=== PATIENT | male | born 1965 | race African-American/Black ===

== ENCOUNTER 2021-11-10 11:24 | Outpatient (REF) | payer MEDICAID, OTHER, SELFPAY ==
--- NOTE | ~2021-11-10 | XR_ITS ---
EXAMINATION: XR SHOULDER, LEFT CLINICAL INFORMATION: Pain COMPARISON: None TECHNIQUE: AP external rotation, Grashey, scapular Y, and axillary views of the left shoulder. FINDINGS: Bone alignment is normal. No fracture or dislocation is seen. The glenohumeral joint is normal. There is mild arthritis at the acromioclavicular joint. There is a small sclerotic lesion in the left scapula probably representing a bone island. Soft tissues are unremarkable. XR/XR shoulder LT min 2V IMPRESSION: Mild arthritis at the acromioclavicular joint. Small sclerotic lesion in the scapula probably representing a bone island.
== END 2021-11-10 11:25 | disposition home or self-care (01) ==
LOC: HO.XRAY 11:24
PROVIDERS: PCP Nurse Practitioner; Visit Provider Nurse Practitioner
DX: M25.512 Pain in left shoulder (principal)
CPT/HCPCS: 73030

== ENCOUNTER 2023-03-17 08:36 | Emergency (ER) | payer MEDICAID, OTHER, SELFPAY ==
--- NOTE | ~2023-03-17 | XR_ITS ---
EXAMINATION: XR FINGER, LEFT CLINICAL INFORMATION: Left second digit injury. COMPARISON: None available. TECHNIQUE: 3 views of the left hand second digit were obtained. An indicator arrow points to the distal interphalangeal joint of the second digit. FINDINGS: Mild soft tissue swelling and deformity seen in the second digit. No radiopaque foreign body is seen. A punctate density is seen at the radial base margin of the middle phalanx. The phalanges are otherwise intact. The joint spaces are unremarkable. The remainder the digits are intact. XR/XR finger LT min 2V IMPRESSION: 1. Mild soft tissue swelling and deformity in the second digit. No radiopaque foreign body. 2. Punctate density at the radial base margin of the middle phalanx is nonspecific and could be incidental/degenerative in nature. A tiny avulsion injury cannot be excluded. Correlate with physical exam.
[2023-03-17 08:46] VITALS: BP 160/101; PULSE 81; RESP 16; TEMP 36.6; O2SAT 98; BMI 23.0
--- NOTE | 2023-03-17 09:10 | ED.GENADULT ---
HPI - General Adult General Chief complaint: Wound/Laceration Stated complaint: Finger Lac Left Hand Time Seen by Provider: 03/17/23 09:07 Source: patient Mode of arrival: ambulatory Limitations: no limitations History of Present Illness HPI narrative: Patient is a 57 year old assigned male at with no reported medical history presenting to the emergency department today with a left index laceration. Patient states that he shut the trunk of a car on his left index finger. Patient denies any dizziness, lightheadedness, abdominal pain, nausea, vomiting, fever, chills, blurry vision, double vision, loss of vision, chest pain, difficulty breathing, shortness of breath, back pain, night sweats, pain with urination, increased urinary frequency, increased urinary urgency, blood in his urine or stool, syncope or a near syncopal episode, bowel incontinence, bladder incontinence, bowel retention, bladder retention, or any other complaints at this time. Onset (ago): hour(s) Location: left (index finger) Radiation: non-radiation Severity: mild Severity scale (1-10): 3 Quality: dull Pain Consistency: constant Relieving factors: none Exacerbating factors: none Associated symptoms: denies other symptoms Treatments prior to arrival: none Related Data Previous Rx's Medication Instructions Recorded cephalexin 500 mg capsule 500 mg PO Q6H 7 days #28 caps 03/17/23 Allergies Allergy/AdvReac Type Severity Reaction Status Date / Time No Known Allergies Allergy Verified 03/17/23 10:06 Review of Systems Constitutional: Constitutional: Reports no additional constitutional complaints, Denies chills, Denies fever(s) and Denies night sweats Eyes: Eyes: Reports no additional eye complaints, Denies blurry vision, Denies change in vision, Denies diplopia, Denies eye discharge, Denies loss of vision and Denies eye pain ENT: Denies dizziness Cardiovascular: Cardiovascular: Reports no additional cardiovascular complaints, Denies chest pain, Denies lightheadedness, Denies Loss of Consciousness and Denies dyspnea Respiratory: Respiratory: Reports no additional respiratory complaints and Denies dyspnea Gastrointestinal: Gastrointestinal: Reports no additional gastrointestinal complaints, Denies abdominal pain, Denies melena, Denies hematochezia, Denies change in bowel habits and Denies change in stool character Genitourinary: Genitourinary: Reports no additional male genitourinary complaints, Denies hematuria, Denies oliguria, Denies difficulty urinating, Denies dysuria, Denies urinary frequency, Denies urinary hesitancy, Denies urinary incontinence and Denies urinary urgency Musculoskeletal: Musculoskeletal: Reports no additional musculoskeletal complaints, Denies numbness and Denies tingling Integumentary/Breasts: Comments: left index finger laceration Neurologic: Denies dizziness, Denies loss of vision, Denies numbness and Denies tingling Psychiatric: Psychiatric: Reports no additional psychiatric complaints Endocrine: Endocrine: Reports no additional endocrine complaints Hematologic/Lymphatic: Hematologic/Lymphatic: Reports no additional hematologic/lymphatic complaints Allergic/Immunologic: Allergic/Immunologic: Reports no additional allergic/immunologic complaints PMFSH Past Medical History Attestation statement: The following information was validated with the patient. Source: old records reviewed and nursing notes reviewed Social History Social History Advance Directives: No Advance Directives Information Provided: No Physical Exam ED Vital Signs: Vital Signs - 24 hr 03/17/23 08:46 Temperature 97.8 F Pulse Rate 81 Respiratory Rate 16 Blood Pressure 160/101 H Pulse Oximetry 98 Oxygen Delivery Method Room Air BMI result Body Mass Index 23.0 Const General: cooperative, no acute distress, alert and awake Nutritional Appearance: well nourished Orientation/consciousness: patient oriented x3 Limitations: no limitations HENMT Head: Yes normal to inspection and Yes atraumatic Ears: hearing grossly normal bilaterally and external ears normal General nose exam: Normal external nose present, no nasal discharge noted and no epistaxis Face and sinus: Yes normal facial exam, No abrasion and No laceration Mouth: Normal oral and palatal mucosa present, no drooling and no muffled voice Eyes General: appearance normal, both eyes and all related structures Periorbital: periorbital findings normal Eyelids: Yes eyelids normal Conjunctivae: conjunctivae normal Pupils: Equal, round and reactive pupils present EOM: EOMs intact bilaterally Neck Neck: Yes normal visual inspection, Yes full ROM and Yes no lymphadenopathy Chest Chest palpation & inspection: normal inspection of the chest Resp Effort & Inspection: normal respiratory effort and able to speak in complete sentences GI Inspection: Yes normal to inspection Neuro General: patient oriented x3 and moves all extremities Cranial nerves: Yes Equal, round and reactive pupils present Cognition (Neuro): normal cognition Motor exam (neuro): 5/5 motor strength present throughout Sensory Exam: Normal double simultaneous stimulation for sensation Coordination: [id number] test normal Extrem Other: 2cm left index finger laceration on the palmar aspect just distal to the DIP joint, no active bleeding General: Yes full ROM and Yes capillary refill normal Psych Appearance: grossly normal Mental Status: mental status grossly normal Affect: normal affect Attitude: cooperative Thought process: Normal thought process present Thought content: Normal thought content present Insight: Good insight present (Psych) Medications Administered Discontinued Medications Generic Name Dose Route Start Last Admin Trade Name Wilbert PRN Reason Stop Dose Admin Lidocaine HCl 10 ml 03/17/23 10:06 03/17/23 10:26 Lidocaine Hcl 1 % Mpf 5 Ml Vial SUBCUT 03/17/23 10:07 10 ml ONCE ONE Administration Procedures Laceration Laceration 1: Site: other (index finger) Side (If applicable): left Size (cm): 2 Description: linear Depth: simple, single layer Local Anesthetic: lidocaine 1% Amount of anesthesia used (mL): 5 Pre-repair: wound explored, irrigated extensively and deep structures intact Skin layer closed with: nylon Size (cm): 4-0 Number of sutures: 6 Technique: simple, interrupted Orthopedic Splinting/Casting Injury #1: Side: left Upper Extremity Injury Location: finger Upper Extremity Immobilizer: finger (other) Medical Decision Making Medical Decision Making MDM Narrative: Patient is a 57 year old assigned male at with no reported medical history presenting to the emergency department today with a left index finger laceration. Patient's physical exam was as noted in the physical exam portion of this chart. Patient's hand x-ray showed a possible left index finger fx. I explained my physical exam findings as well as all test results to the patient. I answered all questions asked by the patient. Patient's left index finger was repaired, per procedure note, without incident. Patient's PMS was intact prior to and after laceration was repaired. Patient's left index finger was splinted with a foam finger splint, without incident. Patient's PMS was intact prior to and after splint placement. I stressed the importance of the patient taking his medication as prescribed. I stressed the importance of the patient following up with his primary care provider. I stressed the importance of the patient having his stitches removed in 7-10 days. I stressed the importance of the patient NOT soaking the affected area and performing daily wound checks / dressing changes. I stressed the importance of the patient returning to the emergency department immediately if his symptoms were to worsen or if he were to develop any dizziness, shortness of breath, difficulty breathing, chest pain, blurry vision, loss of vision, nausea, vomiting, abdominal pain, fever, chills, back pain, or any other complaints. Patient verbalized agreement and understanding with this treatment plan and discharge. Differential Diagnosis Differential Diagnoses: The differential diagnosis associated with the presentation includes Finger laceration Finger fx Independent Interpretation I performed an independent interpretation of an: Plain X-Ray Interpretation: My interpretation is in agreement with the radiologist's impression of this imaging study. EXAMINATION: XR FINGER, LEFT CLINICAL INFORMATION: Left second digit injury.? COMPARISON: None available.? TECHNIQUE: 3 views of the left hand second digit were obtained. An indicator arrow points to the distal interphalangeal joint of the second digit. FINDINGS: Mild soft tissue swelling and deformity seen in the second digit. No radiopaque foreign body is seen. A punctate density is seen at the radial base margin of the middle phalanx. The phalanges are otherwise intact. The joint spaces are unremarkable. The remainder the digits are intact.? XR/XR finger LT min 2V IMPRESSION: 1.? Mild soft tissue swelling and deformity in the second digit. No radiopaque foreign body. 2.? Punctate density at the radial base margin of the middle phalanx is nonspecific and could be incidental/degenerative in nature. A tiny avulsion injury cannot be excluded. Correlate with physical exam. Dictated By: Tom Maharaj MD Signed By: Electronically signed by Tom Maharaj MD 03/17/23 5881 Radiology Impression Discussion of test interpretation with radiology: I have reviewed the radiologist's reading. Prescription Management I considered prescription management with: Antibiotic (patient prescribed an antibiotic) Discharge Plan Discharge Clinical Impression: Laceration, Finger fracture Patient Disposition: Home, Self-Care Instructions: Care For Your Stitches (DC), Finger Fracture (ED) Additional Instructions: Have your sutures removed in 7-10 days. Do NOT soak the affected area. Take your antibiotics as prescribed. Perform daily dressing changes and wound checks. Follow up with your primary care provider and an orthopedic provider. Return to the emergency department immediately if your symptoms worsen or if you develop any dizziness, shortness of breath, difficulty breathing, chest pain, blurry vision, loss of vision, nausea, vomiting, abdominal pain, fever, chills, back pain, or any other complaints. Prescriptions: New cephalexin 500 mg capsule 500 mg PO Q6H 7 Days Qty: 28 0RF [place] [facility] [place] [facility] [Provider Group] (Call to establish and follow up with an orthopedic provider. ) Ania Angel [Primary Care Provider] - Interventions: ED Discharge Assessment Last Done: 03/17/23 11:18 Discharge Date/Time: 03/17/23 11:19 Print Language: Montenegrin
[2023-03-17] MEDS: Lidocaine HCl 1 % MPF 5 ML VIAL 10 ML SUBCUT (10:26)
== END 2023-03-17 11:19 | disposition home or self-care (01) ==
PROVIDERS: Emergency Provider Emergency Medicine Emergency Medical Services; PCP Nurse Practitioner
DX: S61.211A Laceration without foreign body of left index finger without damage to nail, initial encounter (principal); S62.601A Fracture of unspecified phalanx of left index finger, initial encounter for closed fracture; Y29.XXXA Contact with blunt object, undetermined intent, initial encounter; Y93.9 Activity, unspecified; Y92.9 Unspecified place or not applicable; Y99.9 Unspecified external cause status
CPT/HCPCS: 12001; 29130; 73140; 99282; 99284

== ENCOUNTER 2024-04-10 11:55 | Outpatient (REF) | payer MEDICAID, OTHER, SELFPAY ==
[2024-04-10 13:32] LABS: Hematocrit 42.5 % (42.0-52.0); Hemoglobin 14.1 g/dl (14.0-18.0); Mean Corpuscular HGB Conc 33.2 g/dl (31.0-36.0); Mean Corpuscular Hemoglobin 28.3 pg (27.0-33.0); Mean Corpuscular Volume 85.2 fL (80.0-98.0); Mean Platelet Volume 10.4 fL (9.4-12.4); Platelet Count 315 X10*3/uL (160-400); Red Blood Count 4.99 X10*6/uL (4.60-5.80); White Blood Count 10.3 X10*3/uL (4.8-10.8)
[2024-04-10 13:42] LABS: Estimated Average Glucose 105 mg/dL; Hemoglobin A1C 124.6538 umol/L; Hemoglobin A1c % 5.3 % (<6.0)
[2024-04-10 14:01] LABS: Alanine Aminotransferase 19 U/L (0-40); Albumin Level 4.1 g/dL (3.5-5.0); Alkaline Phosphatase 73 U/L (39-117); Anion Gap 10 (12-20); Aspartate Amino Transferase 21 U/L (5-37); Bilirubin Direct 0.1 mg/dL (0.0-0.5); Bilirubin Total 0.4 mg/dL (0.0-1.0); Blood Urea Nitrogen 18 mg/dL (9-16); Calcium 9.6 mg/dL (8.4-10.2); Carbon Dioxide 24 mmol/L (22-29); Chloride 106 mmol/L (96-108); Cholesterol 234 mg/dL (<200); Estimated Glomerular Filt Rate > 60; Glucose Random 87 mg/dL (60-115); HDL Cholesterol 54 mg/dL (>40); LDL Cholesterol Calculated 154 mg/dL (<100); Potassium 4.1 mmol/L (3.3-5.1); Sodium 136 mmol/L (135-145); Total Protein 7.2 g/dL (6.5-8.0); Triglycerides 134 mg/dL (<150)
[2024-04-10 14:06] LABS: Free T4 (Free Thyroxine) 0.97 ng/dL (0.71-1.85); Thyroid Stimulating Hormone 0.51 uIU/mL (0.32-4.0); Vitamin D 25-OH Total 41.4 ng/mL (>30)
[2024-04-11 08:17] LABS: HBc Num1 0.15 S/CO (0.00-0.79); HBsAGNum1 0.29 S/CO (0.00-0.99); HIV AB/AG Nonreactive (Nonreactive); HIV Num 1 0.06 S/CO (0.00-0.99); Hepatitis B Core Antibody Nonreactive (Nonreactive); Hepatitis B Surface Antigen Negative (Negative); ~HepC Num1 0.13 S/CO (0.00-0.79); ~Hepatitis B Surface Antibody NONREACTIVE (Nonreactive); ~Hepatitis C Antibody Nonreactive (Nonreactive)
[2024-04-11 08:21] LABS: Hepatitis A Antibody IgG REACTIVE (Nonreactive)
[2024-04-11 12:03] LABS: RPR Rapid Plasma Reagin NON-REACTIVE (NON-REACTIVE)
[2024-04-12 02:13] LABS: Rubeola IgG (Measles) >300.00 AU/mL
== END 2024-04-10 11:56 | disposition home or self-care (01) ==
LOC: HO.HHCL 11:55
PROVIDERS: Visit Provider Family Medicine
DX: Z00.00 Encounter for general adult medical examination without abnormal findings (principal); Z11.4 Encounter for screening for human immunodeficiency virus [HIV]; I10 Essential (primary) hypertension; E78.49 Other hyperlipidemia; F17.200 Nicotine dependence, unspecified, uncomplicated
CPT/HCPCS: 36415; 80048; 80061; 80076; 82306; 83036; 84439; 84443; 85027; 86592; 86704; 86706; 86708; 86735; 86762; 86765; 86787; 86803; 87340; 87389

== ENCOUNTER → 2024-05-07 13:56 | Outpatient (REF) | payer MEDICAID, OTHER, SELFPAY ==
--- NOTE | 2024-05-07 14:02 | CA_ITS ---
Transthoracic Echocardiogram Patient (Last, First, Middle): Nathalia Rojas, Gender: Male Date of : 1965 Age: 58 Procedure Date: 05/07/2024 Procedure Type: Transthoracic Echocardiogram Location: OP Height: 154.94 cm Weight: 50.8 kg BSA: 1.48 m2 Heart Rate: bpm BP: 128 / 90 mmHg Jet Aircraft Servicer: BETO Referring MD: Puja Giron DO Cane Burner: Junior Taveras MD Symptoms: CHEST PAIN Study Quality: Fair ECG Rhythm: Sinus Conclusions: - 1. Normal LV ejection fraction 60 65% with grade 1 diastolic dysfunction 2. Normal cardiac valvular Dopplers 3. No gross pericardial effusion Findings Procedure Information The study quality is limited by patients body habitus. Left Ventricle Normal left ventricular size, thickness, and systolic function. The visually estimated ejection fraction is between 60-65%. Spectral Doppler is indicative of an impaired relaxation filling pattern. E/E prime ratio is <8, consistent with normal filling pressures. Evidence suggests grade I (mild) diastolic dysfunction. Right Ventricle Normal right ventricular cavity size and systolic function. Atria Both atria are normal in size. Interatrial shunt cannot be excluded. Aortic Valve The aortic valve structure and function is likely normal. There is no aortic valve stenosis. There is no aortic valve regurgitation. Mitral Valve Likely normal mitral valve structure and function. There is trace mitral valve regurgitation. There is no mitral valve stenosis. Pulmonic Valve The pulmonic valve is likely normal. Tricuspid Valve Likely normal tricuspid valve structure and function. Tricuspid regurgitation envelope is inadequate for calculation of right ventricular systolic pressure. Great Vessels All visible segments of the aorta are normal in size. The pulmonary artery was not well visualized. Venous The inferior vena cava is normal in size and collapses greater than 50% with inspiration. Pericardium/Pleural There is no evidence of pericardial effusion. Prior Study Comparison No prior study available for comparison. Measurements 2D Linear Measurements IVSd: 1.11 0.6-0.9/0.6-1.0 cm LVIDd: 3.79 3.9-5.3/4.2-5.9 cm LVIDd Index: 2.56 2.4-3.2/2.2-3.1 cm/m2 LVIDs: 2.28 2.0-3.6 cm LVPWd: 0.89 0.7-1.1 cm LA Diam: 2.20 2.7-3.8/3.0-4.0 cm LAIDs Index: 1.49 1.5-2.3 cm/m2 LV Mass: 145.57 67-162/88-224 g LV Mass Index: 98.35 43-95/49-115 g/m2 LVOT Diam: 2.00 3.0+(-)1.3 cm 2D Systolic Function EF 4C: 59.00 >55% EF 2C: 61.70 >55% EF BiP: 61.80 >55% Mitral Valve MV Pk E: 0.57 MV PK A: 0.77 MV Decel Time: 137.00 E/A: 0.70 E'Lateral: 10.30 E'Medial: 7.72 E/E' Med: 7.40 E/E' Lat: 5.60 PHT: 40.00 MVA PHT: 5.50 Decel George: 4.18 Aortic Valve AoV Pk Eric: 1.57 AoV Mn Eric: 1.06 AoV VTI: 0.30 AoV Pk Grad: 10.00 Aov Mn Grad: 5.00 DARSHAN Cont.VTI: 2.12 LVOT LVOT Pk Eric: 1.02 LVOT Mn Eric: 0.54 LVOT VTI: 0.20 LVOT Pk Grad: 4.00 LVOT Mn Grad: 2.00 LVOT Diam: 2.00 LVOT Area: 3.14 Diastolic Function MV Pk E: 0.57 MV Pk A: 0.77 E/A: 0.70 E'Medial: 7.72 E/E' Med: 7.40 E' Laterial: 10.30 E/E' Lat: 5.60 Right Ventricle TAPSE (mm): 19.90 TVS' Eric: 11.10 Tricuspid Valve RA Press: 3.00 Great Vessels Aorta Sinus of Valsalva: 3.04 2.0-3.[address] Ridge: 2.12 1.7-3.4 cm Ao Asc: 3.00 2.1-3.4 cm Updated in Other Vendor System with Status of Final Junior Taveras MD electronically signed on 05/07/2024 3:27:13 PM with status of Final
== END ==
LOC: HO.CARD 13:56
PROVIDERS: PCP Nurse Practitioner; Visit Provider Family Medicine
DX: R07.9 Chest pain, unspecified (principal)
CPT/HCPCS: 93306

== ENCOUNTER → 2024-05-07 14:02 | Outpatient (BNV) | payer SELFPAY | PROVIDERS: PCP Nurse Practitioner; Visit Provider Internal Medicine Cardiovascular Disease | DX: I51.89 Other ill-defined heart diseases (principal) | CPT/HCPCS: 93306 ==

== ENCOUNTER 2024-09-17 10:23 | Outpatient (REF) | payer SELFPAY ==
--- NOTE | ~2024-09-17 | XR_ITS ---
EXAMINATION: XR CERVICAL SPINE CLINICAL INFORMATION: PAIN COMPARISON: None available. TECHNIQUE: 3 views of the cervical spine were obtained. FINDINGS: Craniocervical junction is intact. Multilevel marginal osteophyte formation, endplate sclerosis, decreased intervertebral disc C5-6, C6-7 and to a lesser extent C3-4. Grade 1 retrolisthesis C5-6 and C6-7. Grade 1 anterolisthesis C4-5. No acute cortical disruption. No lytic or blastic lesions. Upper respiratory airways patent. XR/XR cervical spine 3V IMPRESSION: Multilevel cervical spondylosis resulting in grade 1 retrolisthesis C5-6 and C6-7 levels and grade 1 anterolisthesis C4-5. Electronically signed by: Lenny Reilly MD 09/17/2024 11:22 AM YEHUDA
--- NOTE | ~2024-09-17 | XR_ITS ---
EXAMINATION: XR SHOULDER, RIGHT CLINICAL INFORMATION: PAIN COMPARISON: None available. TECHNIQUE: AP external rotation, Grashey, scapular Y, and axillary views of the right shoulder. FINDINGS: No acute cortical disruption or malalignment. No lytic or blastic lesions. There is preservation of the joint spaces. No metallic or radiopaque foreign body. XR/XR shoulder RT min 2V IMPRESSION: No acute fracture or dislocation. No gross osteoarthrosis. Electronically signed by: Lenny Reilly MD 09/17/2024 11:22 AM YEHUDA MARIN
--- OUTSIDE RECORDS SUMMARY | 2024-09-17 11:18 | XMS_ITS | Encounter Summary ---
Author Organization [employer] Address [address] [place] [address] Care Team Providers Care Lead Pressman [employer] Name Role Phone Bree Puja Primary Care Provider + [phone] Reason for Visit * Reason Comments Chest Pain Encounter Details Date Type Department Care Team (Latest Contact Info) Description 08/23/2024 10:20 AM EST Office Visit [facility] [address] [place] [address] Jacky Rodriguez MD [address] [place] [address] Costochondritis (Primary Dx); Essential hypertension Social History Tobacco Use Types Packs/Day Years Used Date Smoking Tobacco: Every Day Cigarettes Alcohol Use Standard Drinks/Week Comments Yes 0 (1 standard drink = 0.6 oz pur e alcohol) Housing Stability Answer Date Recorded What is your housing situation today? I have lizbet vern 04/10/[address] you li ve. Do you have problems with any of the following? None of the above 04/10/2024 Food Insecurity Answer Date Recorded Within the past 12 months, y ou worried that your food would run out before you got money to buy more: Never True 04/10/2024 Within the past 12 months,th e food you bought just didn't last and you didn't have enough money to get more: Never True Transportation Answer Date Recorded In the past 12 months, has l ack of transportation kept you from medical appts, meetings, work or from getting things needed for daily living? No 04/10/2024 Utilities Answer Date Recorded In the past 12 months, has t he electric, gas, oil or water company threatened to shut off services in your home? No 04/10/2024 Internet Access Answer Date Recorded Internet Access Q1 Yes 04/22/2024 Internet Access Q2 Not on file 04/22/2024 Sex and Gender Information Value Date Recorded Sex Assigned at Male 06/20/2022 10:36 AM EDT Legal Sex Male 10:36 AM EDT Gender Identity Male 06/20/2022 10:36 AM EDT Sexual Orientation Straight 06/20/2022 10 :36 AM EDT documented as of this encounter Last Filed Vital Signs Vital Sign Reading Time Taken Comments Blood Pressure 146/88 08/23/2024 10:10 AM EST Pulse 90 08/23/2024 10:10 AM EST Temperature 36.3 ??C (97.3 ??F) 08/23/2024 10:[address] Respiratory Rate 17 08/23/2024 10:10 AM EST Oxygen Saturation 99% 08/23/2024 10:10 AM EST Inhaled Oxygen Concentration - - Weight 50.3 kg (111 lb) 08/23/2024 10:10 AM EST Height - - Body Mass Index 20.97 08/19/2024 9:04 AM EST documented in this encounter Progress Notes * Jacky Thornton MD - 08/23/2024 10:20 AM EST Images from the original note were not included. SUBJECTIVE: Nathalia Rojas is a 59 y.o. year old male who presents for chest wall pain . Acute Concerns: Patient reports for he past week he has being having pain on his right side of the chest radiating to his right arm, patient comes with and they report he was doing some chores at home lifting heavy objects, he denies nausea, sweating, weakness, palpitations, pain is reproducible. Off note patient has being c/o chest pain before and he already had an echocardiogram done and has a cariology appointment on 09/17/23 Social History Social History Narrative Not on file Patient Active Problem List Diagnosis Tobacco dependence Essential hypertension Chronic left shoulder pain BMI 21.0-21.9, adult Costochondritis Family History Problem Relation Name Age of Onset Stroke Mother Stroke Brother Review of Systems Constitutional: Negative. HENT: Negative. Respiratory: Negative. Cardiovascular: Positive for chest pain. Negative for palpitations and leg swelling. Gastrointestinal: Negative. Musculoskeletal: Chest wall pain, right arm pain OBJECTIVE: Vitals: 08/23/24 1010 BP: (!) 146/88 BP Location: Right arm Patient Position: Sitting BP Cuff Size: Adult Pulse: 90 Resp: 17 Temp: 97.3 ??F (36.3 ??C) TempSrc: Temporal SpO2: 99% Weight: 111 lb (50.3 kg) Physical Exam Constitutional: Appearance: Normal appearance. Cardiovascular: Rate and Rhythm: Normal rate and regular rhythm. Pulmonary: Effort: Pulmonary effort is normal. Breath sounds: Normal breath sounds. Chest: Comments: Tenderness Abdominal: General: Abdomen is flat. Palpations: Abdomen is soft. Neurological: Mental Status: He is alert. Follow Up: No follow-ups on file. Current Outpatient Medications on File Prior to Visit Medication Sig Dispense Refill albuterol 108 (90 Base) MCG/ACT inhaler Inhale 2 puffs every 4 (four) hours if needed for wheezing or shortness of breath. 18 g 1 amLODIPine (Norvasc) 5 MG tablet Take 1 tablet (5 mg) by mouth Once per day. 90 tablet 3 atorvastatin (Lipitor) 10 MG tablet Take 1 tablet (10 mg) by mouth Once per day. 90 tablet 3 Blood Pressure kit cetirizine (ZyrTEC) 10 MG tablet Take 1 tablet (10 mg) by mouth Once per day. 30 tablet 11 meloxicam (Mobic) 15 MG tablet Take 1 tablet (15 mg) by mouth Once per day. 30 tablet 11 triamcinolone (Kenalog) 0.1 % cream Apply topically if needed in the morning and at bedtime (pain and swelling). 80 g 2 [DISCONTINUED] clindamycin (Cleocin) 300 MG capsule Take 1 capsule by mouth every 8 (eight) hours. [DISCONTINUED] naproxen (Naprosyn) 500 MG tablet Take 1 tablet by mouth if needed in the morning and at bedtime for pain. No current facility-administered medications on file prior to visit. Problem List Items Addressed This Visit Costochondritis - Primary Apply heat on affected area Acetaminophen 1000mg Q 8hrs Cyclobenzaprine 10mg Q 8hrs (patient was intake counselor about side effect somnolence, do not drive while taking this medication) If chest pain persists I advise for him to go to the emergency room Relevant Medications cyclobenzaprine (Flexeril) 10 MG tablet acetaminophen (Tylenol Extra Strength) 500 MG tablet Other Relevant Orders ECG 12 lead (Completed) Essential hypertension Today slightly elevated, he did not took his blood pressure medications I advise not to miss any dose and low Na diet, f/u with PCP documented in this encounter Miscellaneous Notes * Assessment & Plan Note - Jacky Thornton MD - 08/23/2024 10:57 AM EST Associated Problem(s): Costochondritis Apply heat on affected area Acetaminophen 1000mg Q 8hrs Cyclobenzaprine 10mg Q 8hrs (patient was intake counselor about side effect somnolence, do not drive while taking this medication) If chest pain persists I advise for him to go to the emergency room * Assessment & Plan Note - Jacky Thornton MD - 08/23/2024 10:56 AM EST Associated Problem(s): Essential hypertension Today slightly elevated, he did not took his blood pressure medications I advise not to miss any dose and low Na diet, f/u with PCP * Addendum Note - Jacky Thornton MD - 08/23/2024 10:20 AM ESTAddended by: JACKY KNOTT on: 08/23/2024 11:08 AM Modules accepted: Orders documented in this encounter Plan of Treatment Not on file documented as of this encounter Procedures Procedure Name Priority Date/Time Associated Diagnosis Comments ECG 12-LEAD Routine 08/23/2024 11:08 AM EST Costochondritis documented in this encounter Results * ECG 12 lead (08/23/2024 11:08 AM EST) Narrative Jacky Rodriguez MD - 08/23/2024 11:08 AM EST NSR us Jacky Thornton MD ECG ORDERABLES Final Result documented in this encounter Visit Diagnoses Diagnosis Costochondritis- Primary Tietze's disease Essential hypertension Unspecified essential hypertension documented in this encounter Care Teams Lead Pressman [employer] Relationship Specialty Start Date End Date Puja Giron DO [address] [place] [address] PCP - General Family Medicine 03/08/24 documented as of this encounter
--- OUTSIDE RECORDS SUMMARY | 2024-09-17 11:18 | XMS_ITS | Encounter Summary ---
Author Organization [employer] Address [address] [facility] 7t [place] [address] Care Team Providers Care Ice Cream Chef Name Role Phone Puja Giron DO Primary Care Provider + [phone] Reason for Visit * Reason Comments Med Refill Encounter Details Date Type Department Care Team ([facility] Contact Info) Description 08/30/2024 Refill [facility] [address] [place], [place] [phone] Puja Giron DO [address] [place], [place] [phone] Social History Tobacco Use Types Packs/Day Years Used Date Smoking Tobacco: Every Day Cigarettes Alcohol Use Standard Drinks/Week Comments Yes 0 (1 standard drink = 0.6 oz pur e alcohol) Housing Stability Answer Date Recorded What is your housing situation today? I have lizbet porras 04/10/[address] you li [...] AM EDT documented as of this encounter Plan of Treatment Not on file documented as of this encounter Visit Diagnoses Not on filedocumented in this encounter Care Teams Ice Cream Chef Relationship Specialty Start Date End Date Puja Giron DO [address] [place] [phone] PCP - General Family Medicine 03/08/24 documented as of this encounter
--- OUTSIDE RECORDS SUMMARY | 2024-09-17 11:18 | XMS_ITS | Encounter Summary ---
Author Organization [employer] Address 75 [facility] 7t [place] [address] Care Team Providers Care Lining Feller Blindstitch Name Role Phone Puja Giron DO Primary Care Provider + [phone] Encounter Details Date Type Department Care Team ([facility] st Contact Info) Description 09/17/2024 9:00 AM EST Office Visit [facility] [address] [place] [address] Puja Giron DO [address] [place] [address] Right-sided chest pain (Primary Dx); Chronic right shoulder pain; Right arm pain; Dermatitis; Encounter for immunization Social History Tobacco Use Types Packs/Day Years Used Date Smoking Tobacco: Every Day Cigarettes Tobacco Cessation:Ready to Q uit: Not Asked; Counseling Given: Not Answered Alcohol Use Standard Drinks/Week Comments Yes 0 [...] Sign Reading Time Taken Comments Blood Pressure 132/70 09/17/2024 9:26 AM EST Pulse 86 09/17/2024 9:26 AM EST Temperature 36.8 ??C (98.3 ??F) 09/17/2024 9:26 AM ES T Respiratory Rate 18 09/17/2024 9:26 AM EST Oxygen Saturation - - Inhaled Oxygen Concentration - - Weight 50.8 kg (112 lb) 09/17/2024 9:26 AM EST Height 160 cm (5' 3 ) 09/17/2024 9:26 AM EST Body Mass Index 19.84 09/17/2024 9:26 AM EST documented in this encounter Plan of Treatment Scheduled Orders Name Type Priority Associated Diagnoses Orde r Schedule XR Shoulder 2+ Views Right Imaging Routine Chronic right shoulder pain Right arm pain Expected: 09/17/2024, Expires: 09/17/2025 XR Cervical Spine 2-3 Views Imaging Routine Chronic right shoulder pain Right arm pain Expected: 09/17/2024, Expires: 09/17/2025 documented as of this encounter Visit Diagnoses Diagnosis Right-sided chest pain- Primary Chronic right shoulder pain Pain in joint, shoulder region Right arm pain Pain in soft tissues of limb Dermatitis Contact dermatitis and other eczema, due to unspecified cause Encounter for immunization documented in this encounter Care Teams Lining Feller Blindstitch Relationship Specialty Start Date End Date Puja Giron DO [address] [place] [address] PCP - General Family Medicine 03/08/24 documented as of this encounter
--- OUTSIDE RECORDS SUMMARY | 2024-09-17 11:18 | XMS_ITS | Encounter Summary ---
Author Organization [employer] Address [address] [facility] 7t [place] [address] Care Team Providers Care Welder Shielded Metal Arc Name Role Phone Puja Grion DO Primary Care Provider + [phone] Reason for Visit * Reason Comments Chest Pain Encounter Details Date Type Department Care Team ([facility] st Contact Info) Description 08/19/2024 9:20 AM EST Office Visit [facility] [address] [place] [address] Ruth Antonio MD [address] [place] [address] Essential hypertension (Primary Dx); Costochondritis; History of nummular eczema Social History Tobacco Use Types Packs/Day Years [...] Sign Reading Time Taken Comments Blood Pressure 141/82 08/19/2024 9:04 AM EST Pulse 67 08/19/2024 9:04 AM EST Temperature 36.6 ??C (97.8 ??F) 08/19/2024 9:04 AM ES T Respiratory Rate 20 08/19/2024 9:04 AM EST Oxygen Saturation - - Inhaled Oxygen Concentration - - Weight 51 kg (112 lb 6.4 oz) 08/19/2024 9:04 AM EST Height 154.9 cm (5' 1 ) 08/19/2024 9:04 AM EST Body Mass Index 21.24 08/19/2024 9:04 AM EST documented in this encounter Progress Notes * Ruth Antonio MD - 08/19/2024 9:20 AM EST Subjective Patient ID: Nathalia Rojas is a 59 y.o. male who presents for No chief complaint on file.. HPI One week h/o right upper chest pain radiating to the right shoulder and the right arm associated w/tingling x the last week or so. No reported trigger. Pt never had similar symptoms before. The pain is exacerbated by movements of the right shoulder. H/o pruritic skin rash of the upper and lower limbs x 1 months. No trigger. No h/o contact dermatitis. Patient Active Problem List Diagnosis Tobacco dependence Essential hypertension Chronic left shoulder pain BMI 21.0-21.9, adult Current Outpatient Medications on File Prior to [...] day. 90 tablet 3 Blood Pressure kit [DISCONTINUED] clindamycin (Cleocin) 300 MG capsule Take 1 capsule by mouth every 8 (eight) hours. [DISCONTINUED] naproxen (Naprosyn) 500 MG tablet Take 1 tablet by mouth if needed in the morning and at bedtime for pain. No current facility-administered medications on file prior to visit. Review of Systems Constitutional: Negative for appetite change, chills and diaphoresis. Respiratory: Negative for cough, choking and shortness of breath. Cardiovascular: Negative for leg swelling. Musculoskeletal: Positive for myalgias. Skin: Positive for rash. Objective BP (!) 141/82 (BP Location: Left arm, Patient Position: Sitting, BP Cuff Size: Adult) Pulse 67 Temp 97.8 ??F (36.6 ??C) (Temporal) Resp 20 Ht 5' 1 (1.549 m) Wt 112 lb 6.4 oz (51 kg) BMI 21.24 kg/m?? Physical Exam Constitutional: General: He is not in acute distress. Appearance: Normal appearance. He is not ill-appearing. Cardiovascular: Rate and Rhythm: Normal rate. Pulmonary: Effort: Pulmonary effort is normal. Abdominal: Palpations: Abdomen is soft. Skin: Comments: Erythematous and dry oval and dry patches or varied sizes of the upper and lower limbs. Neurological: Mental Status: He is alert. Assessment/Plan Diagnoses and all orders for this visit: Essential hypertension Comments: Did not take his BP medication yet today Pt advised to check his BP at home at arrival and to report to the office DASH diet Orders: - ECG 12 lead Costochondritis Comments: Moist heat to the area Rest. Avoid lifting. Meloxicam as directed RTC for follow up w/ PCP in a month or so. Orders: - ECG 12 lead - meloxicam (Mobic) 15 MG tablet; Take 1 tablet (15 mg) by mouth Once per day. History of nummular eczema - cetirizine (ZyrTEC) 10 MG tablet; Take 1 tablet (10 mg) by mouth Once per day. - triamcinolone (Kenalog) 0.1 % cream; Apply topically if needed in the morning and at bedtime (pain and swelling). Follow up w/ PCP as scheduled in 1 month. documented in this encounter Plan of Treatment Not on file documented as of this encounter Procedures Procedure Name Priority Date/Time Associated Diagnosis Comments ECG 12-LEAD Routine 08/19/2024 9:48 AM EST Essential hypertension Costochondritis documented in this encounter Results * ECG 12 lead (08/19/2024 9:48 AM EST) Narrative Ruth Antonio MD - 08/19/2024 9:48 AM EST HR: 80. Sinus rhythm. [place]: 80 degrees. No LAE, TOMA. No hypertrophy. No ST elevation or depression. Normal EKG. us Ruth Antonio MD ECG ORDERABLES Final Resul t documented in this encounter Visit Diagnoses Diagnosis Essential hypertension- Primary Unspecified essential hypertension Costochondritis Tietze's disease History of nummular eczema documented in this encounter Care Teams Welder Shielded Metal Arc Relationship Specialty Start Date End Date Puja Giron DO [address] [place] [address] PCP - General Family Medicine 03/08/24 documented as of this encounter
--- OUTSIDE RECORDS SUMMARY | 2024-09-17 11:19 | XMS_ITS | Clinical Summary ---
Author Organization [employer] Address 75 [facility] 7t [place] [address] Care Team Providers Care Casting House Worker Name Role Phone Puja Giron DO Primary Care Provider + [phone] Allergies Active Allergy Reactions Criticality Noted Date Comments Ampicillin 11/06/2019 Medications Blood Pressure kit Active atorvastatin (Lipitor) 10 MG tablet Take 1 tablet (10 mg) by mouth Once per day. 90 tablet 3 04/10/20 24 025 Active amLODIPine (Norvasc) 5 MG tablet Take 1 tablet (5 mg) by mouth Once per day. 90 tablet 3 04/10/20 24 025 Active cetirizine (ZyrTEC) 10 MG tabletIndicati ons:History of nummular eczema Take 1 tablet (10 mg) by mouth Once per day. 30 tablet 11 08/19/20 24 025 Active triamcinolone (Kenalog) 0.1 % creamIndicatio ns:History of nummular eczema Apply topically if needed in the morning and at bedtime (pain and swelling). 80 g 2 08/19/20 24 Active meloxicam (Mobic) 15 MG tabletIndicati ons:Costochond ritis Take 1 tablet (15 mg) by mouth Once per day. 30 tablet 11 08/19/20 24 025 Active cyclobenzaprin e (Flexeril) 10 MG tabletIndicati ons:Costochond ritis Take 1 tablet (10 mg) by mouth 3 times daily for 10 days. 30 tablet 08/23/19 25 Active Ventolin HFA 108 (90 Base) MCG/ACT inhaler INHALE 2 PUFFS EVERY 4 HOURS NEEDED FOR WHEEZING OR SHORTNESS OF BREATH 18 g 1 08/30/19 25 Active clindamycin (Cleocin) 300 MG capsule Take 1 capsule by mouth every 8 (eight) hours. 01/21/20 22 024 Discontinued(Th erapy completed) naproxen (Naprosyn) 500 MG tablet Take 1 tablet by mouth if needed in the morning and at bedtime for pain. 03/08/20 22 024 Discontinued(Th erapy completed) albuterol 108 (90 Base) MCG/ACT inhaler Inhale 2 puffs every 4 (four) hours if needed for wheezing or shortness of breath. 18 g 1 04/10/20 24 025 Discontinued acetaminophen (Tylenol Extra Strength) 500 MG tabletIndicati ons:Costochond ritis Take 2 tablets (1,000 mg) by mouth every 8 (eight) hours if needed for mild pain for up to 10 days. 30 tablet 08/23/19 25 025 Active Problems Problem Noted Date Diagnosed Date Costochondritis 08/23/2024 Assessment & Plan (08/23/2024 10:57 AM EST): Apply heat on affected area Acetaminophen 1000mg Q 8hrs Cyclobenzaprine 10mg Q 8hrs (patient was enrollment counselor about side effect somnolence, do not drive while taking this medication) If chest pain persists I advise for him to go to the emergency room BMI 21.0-21.9, adult 04/10/2024 Tobacco dependence 07/26/2022 Essential hypertension 07/26/2022 Assessment & Plan (08/23/2024 10:56 AM EST): Today slightly elevated, he did not took his blood pressure medications I advise not to miss any dose and low Na diet, f/u with PCP Chronic left shoulder pain 09/28/2021 Resolved Problems Problem Noted Date Diagnosed Date Resolved Date Cardiovascular event risk 07/26/2022 Encounters Date Type Department Care Team Description 09/17/2024 9:00 AM EST Office Visit [address] [address] [place], Puja, DO Right-sided chest pain (Primary Dx); Chronic right shoulder pain; Right arm pain; Dermatitis; Encounter for immunization 09/17/2024 Telephone [facility] [address] [place] [phone] Puja Giron DO 09/17/2024 Travel 08/30/2024 Refill [facility] [address] [place] [phone] Puja Giron DO 08/23/2024 10:20 AM EST Office Visit [facility] [address] [place] [phone] Nkechi Rodriguez MD Costochondritis (Primary Dx); Essential hypertension 08/19/2024 9:20 AM EST Office Visit [facility] [address] [place] [phone] Ruth Antonio MD Essential hypertension (Primary Dx); Costochondritis; History of nummular eczema 08/08/2024 Telephone [facility] [address] [place] [phone] Puja Giron DO Lab Orders 08/08/[address] [address] Puja Giron DO Nurse Triage from Last 3 Months Immunizations Name Administration Dates Next Due Influenza, seasonal, injecta ble, preservative free 09/17/2024 Pfizer Covid-19 Vaccine 12+ 09/17/2024,,09/15/2021 Tdap 11/10/2021 Family History Medical History Relation Name Comments Stroke Brother Stroke Mother Relation Name Status Comments Brother Mother Social History Tobacco Use Types Packs/Day Years [...] Orientation Straight 06/20/2022 10 :36 AM EDT Last Filed Vital Signs Vital Sign Reading Time Taken Comments Blood Pressure 132/70 09/17/2024 9:26 AM EST Pulse 86 09/17/2024 9:26 AM EST Temperature 36.8 ??C (98.3 ??F) 09/17/2024 9:26 AM ES T Respiratory Rate 18 09/17/2024 9:26 AM EST Oxygen Saturation 99% 08/23/2024 10:10 AM EST Inhaled Oxygen Concentration - - Weight 50.8 kg (112 lb) 09/17/2024 9:26 AM EST Height 160 cm (5' 3 ) 09/17/2024 9:26 AM EST Body Mass Index 19.84 09/17/2024 9:26 AM EST Plan of Treatment Health Maintenance Due Date Last Done Comments CT Colonography 1967 Colonoscopy 1967 Colorectal Cancer Screening 1967 Depression Screening 1967 FIT DNA/Cologuard 1967 FIT 1967 FOBT 1967 Sigmoidoscopy 1967 Pneumococcal Vaccine: Pediatrics (0 to 5 Years) and At-Risk Patients (6 to 64 Years) (1 of 2 - PCV) 1973 Alcohol/Substance Use Screening 1979 Hepatitis A Vaccines (1 of 2 - Risk 2-dose series) 1986 Hepatitis B Vaccines (1 of 3 - 19+ 3-dose series) 1986 Zoster Vaccines (1 of 2) 2017 SDOH Screening 04/10/2025 04/10/2024 Tobacco Screening 09/17/2025 09/17/2024 Lipid Panel 04/10/2029 04/10/2024, 11/10/2021 DTaP/Tdap/Td Vaccines (2 - T d or Tdap) 11/11/2031 11/10/2021 RSV Patients and Patients Aged 60 years or older (1 - 1-dose 75+ series) 2042 HIV Screening Completed 04/10/2024, 11/10/2021, 11/07/2019 Hepatitis C Screening Completed 04/10/2024 , 11/10/2021, 11/07/2019 COVID-19 Vaccine Completed 09/17/2024, 10/06/2021, 09/15/2021 Influenza Vaccine Completed 09/17/2024 HIB Vaccines Aged Out No longer eligi ble based on patient's age to complete this topic HPV Vaccines Aged Out No longer eligi ble based on patient's age to complete this topic IPV Vaccines Aged Out No longer eligi ble based on patient's age to complete this topic Meningococcal Vaccine Aged Out No serenity farzad eligible based on patient's age to complete this topic RSV under 20 months Aged Out No longe r eligible based on patient's age to complete this topic Rotavirus Vaccines Aged Out No longer eligible based on patient's age to complete this topic Procedures Procedure Name Priority Date/Time Associated Diagnosis Comments ECG 12-LEAD Routine 08/23/2024 11:08 AM EST Costochondritis ECG 12-LEAD Routine 08/19/2024 9:48 AM EST Essential hypertension Costochondritis HEPATITIS C AB W/REFL TO HCV RNA, QN, PCR Routine 04/10/2024 12:00 PM EDT Routine history and physical examination of adult Essential hypertension Other hyperlipidemia Tobacco dependence BMI 21.0-21.9, adult HIV 1/2 ANTIGEN/ANTIBODY, FOURTH GENERATION W/RFL Routine 04/10/2024 12:00 PM EDT Routine history and physical examination of adult Essential hypertension Other hyperlipidemia Tobacco dependence BMI 21.0-21.9, adult LIPID PANEL, STANDARD Routine 04/10/2024 12:00 PM EDT Routine history and physical examination of adult Essential hypertension Other hyperlipidemia Tobacco dependence BMI 21.0-21.9, adult from Last 3 Months or Most Recently Relevant to Health Maintenance Results * ECG 12 lead (08/23/2024 11:08 AM EST) Only the most recent of2 resultswithin the time period is included. Narrative Nkechi Rodriguez MD - 08/23/2024 11:08 AM EST NSR us Nkechi Thornton MD ECG ORDERABLES Final Result * Hepatitis C Antibody with Reflex to HCV, RNA, Quantitative, Real-Time PCR (04/10/2024 12:00 PM EDT) Hepatitis C Antibody Nonreactive Nonreactive [facility] Comment:Antibodies to HCV no t detected; does not exclude early acuteHCV infection. Blood Venous blood specimen / Unknown 04/10/2024 12:00 PM EDT 04/10/2024 1:09 PM EDT us Puja Giron DO LAB BLOOD ORDERABLES Final R esult [facility] [address] [place] [phone] * HIV-1/2 Antigen and Antibodies, Fourth Generation, with Reflexes (04/10/2024 12:00 PM EDT) HIV AB/AG Nonreactive Nonreactive [facility] Comment:HIV-1 p24 Ag and/or HIV-1/HIV-2 Ab not detected.A test result that is nonreactive does not exclude thepossibility of exposure to or infection with HIV-1 and/orHIV-2. Nonreactive results in this assay for individualswith prior exposure to HIV-1 and/or HIV-2 may be due toantigen and antibody levels that are below the limit ofdetection of this assay.The [facility] HIV Ag/Ab Combo assay result andsupplemental assay results should be interpreted inconjunction with the patient's clinical presentation,history and other laboratory results. If the results areinconsistent with clinical evidence, additional testing issuggested to confirm the result. Blood Venous blood specimen / Unknown 04/10/2024 12:00 PM EDT 04/10/2024 1:09 PM EDT us Puja Giron DO LAB BLOOD ORDERABLES Final R esult [facility] [address] [place] [phone] * (ABNORMAL) Lipid Panel, Standard (04/10/2024 12:00 PM EDT) Triglycerides 134 <150 mg/dL [facility] Comment:Desirable Triglyceri de: less than 150 mg/dLBorderline High Triglyceride 150-199 mg/dLHigh Triglyceride: 200-499 mg/dLVery High Triglyceride: greater than or equal to 5OO mg/dL Cholesterol 234(H) <200 mg/dL [facility] Comment:Desirable Cholestero l: less than 200 mg/dLBorderline High Cholesterol: 200-239 mg/dLHigh Cholesterol: greater than 239 mg/dL LDL Cholesterol Calculated 154(H) <100 mg/dL [facility] Comment:Desirable LDL: less than 100 mg/dLNear Optimal/Above Optimal LDL: 110- 129 mg/dLBorderline High LDL: 130-159 mg/dLHigh LDL: 160-189 mg/dLVery High LDL: greater than or equal to 190 mg/dL HDL Cholesterol 54 >40 mg/dL [facility] Comment:Desirable HDL: great er than 40 mg/dL Note: This HDL assay may give artificially low results in patients with liver disease. Blood Venous blood specimen / Unknown 04/10/2024 12:00 PM EDT 04/10/2024 1:09 PM EDT us Puja Giron DO LAB BLOOD ORDERABLES Final R esult [facility] [address] [place] [phone] from Last 3 Months or Most Recently Relevant to Health Maintenance [facility] [employer] Care Teams Casting House Worker Relationship Specialty Start Date End Date Puja Giron DO [address] [place] [address] PCP - General Family Medicine 03/08/24
--- OUTSIDE RECORDS SUMMARY | 2024-09-17 11:19 | XMS_ITS | Encounter Summary ---
Author Organization [employer] Address [address] [facility] [address] [place] [address] Care Team Providers Care Telephone Cleaner Name Role Phone AngiePuja garcia Primary Care Provider + [phone] Encounter Details Date Type Department Care Team (Latest Contact Info) Description 09/17/2024 Travel Social History Tobacco Use Types Packs/Day Years [...] on filedocumented in this encounter Care Teams Telephone Cleaner Relationship Specialty Start Date End Date Puja Giron DO [address] [place] [phone] PCP - General Family Medicine 03/08/24 documented as of this encounter
--- OUTSIDE RECORDS SUMMARY | 2024-09-17 11:19 | XMS_ITS | Encounter Summary ---
Author Organization [employer] Address [address] [facility] [address] [place] [address] Care Team Providers Care Benefits Advisor Name Role Phone Puja Giron DO Primary Care Provider + [phone] Encounter Details Date Type Department Care Team ([facility] st Contact Info) Description 09/17/2024 Telephone [facility] [address] [place] [address] Puja Giron DO [address] [place], [place] [phone] Social History Tobacco Use Types Packs/Day Years [...] AM EDT documented as of this encounter Miscellaneous Notes * Telephone Encounter - Tianna Florinda - 09/17/2024 9:22 AM EST Pt walked in to check in for appt. Insurance was inactive, pt was advised by service desk analyst to go and speak to insurance enrollment to reactivate insurance. Pt verbalized understanding and said she will have this resolved. documented in this encounter Plan of Treatment Not on file documented as of this encounter Visit Diagnoses Not on filedocumented in this encounter Care Teams Benefits Advisor Relationship Specialty Start Date End Date Puja Giron DO [address] [place] [address] PCP - General Family Medicine 03/08/24 documented as of this encounter
== END 2024-09-17 10:24 | disposition home or self-care (01) ==
LOC: HO.HHCX 10:23
PROVIDERS: Visit Provider Family Medicine
DX: M25.511 Pain in right shoulder (principal); G89.29 Other chronic pain
CPT/HCPCS: 72040; 73030

== ENCOUNTER → 2024-09-17 10:25 | Outpatient (BNV) | payer SELFPAY | PROVIDERS: Visit Provider Radiology Diagnostic Radiology | DX: M25.511 Pain in right shoulder (principal); M54.2 Cervicalgia | CPT/HCPCS: 72040; 73030 ==

== ENCOUNTER 2024-10-23 11:47 | Outpatient (REF) | payer MEDICAID, OTHER, SELFPAY ==
--- OUTSIDE RECORDS SUMMARY | 2024-10-23 14:14 | XMS_ITS | Encounter Summary ---
Author Organization [employer] Address [address] [facility] [address] 7[address] [place] [address] Care Team Providers Care Therapy Coordinator Name Role Phone Puja Giron DO Primary Care Provider + [phone] Encounter Details Date Type Department Care Team (Late st Contact Info) Description 10/23/2024 11:20 AM EST Office Visit [facility] [address] [place], [place] [phone] Ron Iqbal MD [address] [place], [place] [phone] Rash (Primary Dx); Essential hypertension; Tobacco dependence Social History Tobacco Use Types Packs/Day Years [...] the past 12 months, has t he [employer], gas, oil or water [employer] threatened to shut off services in your [...] Sign Reading Time Taken Comments Blood Pressure 146/91 10/23/2024 11:19 AM EST Pulse 100 10/23/2024 11:19 AM EST Temperature 36.7 ??C (98 ??F) 10/23/2024 11:19 AM EST Respiratory Rate 20 10/23/2024 11:19 AM EST Oxygen Saturation 99% 10/23/2024 11:19 AM EST Inhaled Oxygen Concentration - - Weight 50.3 kg (111 lb) 10/23/2024 11:19 AM EST Height 160 cm (5' 3 ) 10/23/2024 11:19 AM EST Body Mass Index 19.66 10/23/2024 11:19 AM EST documented in this encounter Progress Notes * Ron Iqbal MD - 10/23/2024 11:20 AM EST Subjective Patient ID: Nathalia Rojas is a 59 y.o. male. KRISTIN Sloan was seen at [facility] September 17, 2024 for persistent rash on his left arm and left leg. Was prescribed triamcinolone acetonide ointment, encouraged to use moisturizer, prescribed Benadrylfor itching, and referred to [facility] dermatology. He returns today because the rash still comes and goes, improved transiently with triamcinolone acetonide 0.1% ointment, and itching improved transiently with Benadryl. He has not received a [facility] dermatology appointment yet. Denies SOB, swelling, sensation of throat tightness, new medications, soap, shampoo, detergent, or deodorant. Denies tick bite, or known contacts who have a rash. The following portions of the chart were reviewed this encounter and updated as appropriate: Lives with Not employed. Smokes 1/2 PPD. Patient Active Problem List Diagnosis Tobacco dependence Essential hypertension Chronic left shoulder pain BMI 21.0-21.9, adult Costochondritis Review of Systems Constitutional: Negative for fever. Respiratory: Negative for shortness of breath. Cardiovascular: Negative for chest pain. Gastrointestinal: Negative for abdominal pain. Skin: Positive for rash. Neurological: Negative for headaches. Objective Physical Exam Constitutional: Appearance: Normal appearance. HENT: Nose: Nose normal. Mouth/Throat: Mouth: Mucous membranes are moist. Pharynx: Oropharynx is clear. Eyes: Conjunctiva/sclera: Conjunctivae normal. Pupils: Pupils are equal, round, and reactive to light. Cardiovascular: Rate and Rhythm: Normal rate and regular rhythm. Heart sounds: No murmur heard. Pulmonary: Effort: Pulmonary effort is normal. Breath sounds: Normal breath sounds. Musculoskeletal: General: Normal range of motion. Cervical back: No tenderness. Skin: Findings: No rash. Comments: Several raised, nontender, oval and round, lesions on arms back abdomen and lateral thighs. Some lesions are excoriated from scratching. No drainage. No involvement of hands. Neurological: Mental Status: He is alert. Gait: Gait is intact. Psychiatric: Mood and Affect: Mood normal. Behavior: Behavior normal. Procedures Assessment/Plan Diagnoses and all orders for this visit: Rash Unclear etiology. RPR ordered. Will call patient with results. Refilled triamcinolone acetonide ointment, Benadryl, Zyrtec. I will request a [facility] dermatology appointment again. Return to clinic if not improving- RPR (Monitor) with Reflex to Titer; Future Essential hypertension Prescribed new home BP monitor. Reviewed BP parameters, given written BP log that includes BP parameters, to keep daily. Call if BP readings are elevated. Tobacco dependence Prescribed nicotine patches and lozenges. Other orders - nicotine (Nicoderm CQ) 14 MG/24HR patch; Place 1 patch on the skin 1 (one) time each day at the same time. - nicotine (Nicoderm CQ) 7 MG/24HR patch; Place 1 patch on the skin 1 (one) time each day at the same time. - nicotine polacrilex (Commit) 4 MG lozenge; Dissolve 1 lozenge (4 mg) in the mouth every 2 (two) hours if needed for smoking cessation. - Blood Pressure kit; 1 each 2 times daily. - triamcinolone (Kenalog) 0.1 % ointment; Apply topically if needed in the morning and at bedtime for rash. - diphenhydrAMINE (BENADryl) 25 MG tablet; Take 1 tablet (25 mg) by mouth every 6 (six) hours if needed for itching. documented in this encounter Plan of Treatment Scheduled Orders Name Type Priority Associated Diagnoses Orde r Schedule RPR (Monitor) with Reflex to??Titer Lab Routine Rash Expected: 10/23/2024 (Approximate), Expires: 10/23/2025 documented as of this encounter Visit Diagnoses Diagnosis Rash- Primary Rash and other nonspecific skin eruption Essential hypertension Unspecified essential hypertension Tobacco dependence Tobacco use disorder documented in this encounter Care Teams Therapy Coordinator Relationship Specialty Start Date End Date Puja Giron DO [address] [place] [phone] PCP - General Family Medicine 03/08/24 documented as of this encounter
--- OUTSIDE RECORDS SUMMARY | 2024-10-23 14:14 | XMS_ITS | Encounter Summary ---
Author Organization [employer] Address [address] [facility] 7 [place] [address] Care Team Providers Care Physical Chemist Name Role Phone Puja Giron DO Primary Care Provider [phone] Reason for Referral * Consultation (Routine) - Authorized Specialty Diagnoses / Procedures Referred By Emani rush Referred To Contact Orthopaedic Surgery Diagnoses Neck pain Puja Giron DO [address] [place] [address] Phone: tel: fax: [facility] (Ambulatory Center) [address] [place] [address] Phone: tel: fax: Referral ID Status Reason Start Date Expiration Date Visits Requested Visits Authorized [id number] Authorized Specialty Services Required 09/30/2024 09/30/2025 1 1 Encounter Details Date Type Department Care Team (Late st Contact Info) Description 09/30/2024 Orders Only [facility] [address] [place], [place] [phone] Puja Giron DO [address] [place], [place] [phone] Neck pain (Primary Dx) Social History Tobacco Use Types Packs/Day Years Used Date Smoking Tobacco: Every Day Cigarettes Alcohol Use Standard Drinks/Week Comments Yes 0 (1 standard drink = 0.6 oz pur e alcohol) Housing Stability Answer Date Recorded What is your housing situation today? I have lzibet porras 04/10/[address] you [...] AM EDT documented as of this encounter Progress Notes * Puja Giron DO - 09/30/2024 7:26 AM EST Ortho referral placed. documented in this encounter Plan of Treatment Scheduled Referrals Name Type Priority Associated Diagnoses Order Schedule Referral to Orthopaedic Surgery Outpatient Referral Routine Neck pain Expected: 09/30/2024 (Approximate), Expires: 09/30/2025 documented as of this encounter Visit Diagnoses Diagnosis Neck pain- Primary Cervicalgia documented in this encounter Care Teams Physical Chemist Relationship Specialty Start Date End Date Puja Giron DO [address] [place] [phone] PCP - General Family Medicine 03/08/24 documented as of this encounter
--- OUTSIDE RECORDS SUMMARY | 2024-10-23 14:14 | XMS_ITS | Clinical Summary ---
Author Organization [employer] Address [address] [facility] 7t [place] [address] Care Team Providers Care Jalousies Installer Name Role Phone Puja Giron DO Primary Care Provider + [phone] Allergies Active Allergy Reactions Criticality Noted Date Comments Ampicillin 11/06/2019 Medications atorvastatin (Lipitor) 10 MG tablet Take 1 [...] 30 tablet 11 08/19/20 24 025 Active meloxicam (Mobic) 15 MG tabletIndicati ons:Costochond ritis Take 1 tablet (15 mg) by mouth Once per day. 30 tablet 11 08/19/20 24 025 Active Ventolin HFA 108 (90 Base) MCG/ACT inhaler INHALE 2 PUFFS EVERY 4 HOURS NEEDED FOR WHEEZING OR SHORTNESS OF BREATH 18 g 1 08/30/19 25 Active baclofen (Lioresal) 10 MG tablet Take 1 tablet (10 mg) by mouth if needed in the morning, at noon, and at bedtime for muscle spasms. 60 tablet 1 09/17/19 25 025 Active Diclofenac Sodium 1 % gel Apply 2 g topically if needed in the morning, at noon, in the evening, and at bedtime (pain). 150 g 3 09/17/19 25 Active gabapentin (Neurontin) 300 MG capsule Take 1 capsule (300 mg) by mouth at bedtime. 30 capsule 3 09/17/19 25 026 Active Skin Protectants, Misc. (eucerin) cream Apply topically if needed for dry skin. 396 g 3 09/17/19 25 026 Active nicotine (Nicoderm CQ) 14 MG/24HR patch Place 1 patch on the skin 1 (one) time each day at the same time. 42 patch 10/24/19 25 025 Active nicotine (Nicoderm CQ) 7 MG/24HR patch Place 1 patch on the skin 1 (one) time each day at the same time. 14 patch 10/24/19 25 025 Active nicotine polacrilex (Commit) 4 MG lozenge Dissolve 1 lozenge (4 mg) in the mouth every 2 (two) hours if needed for smoking cessation. 100 lozenge 10/24/19 25 025 Active Blood Pressure kit 1 each 2 times daily. 1 kit 10/24/19 25 Active triamcinolone (Kenalog) 0.1 % ointment Apply topically if needed in the morning and at bedtime for rash. 30 g 1 10/24/19 25 Active diphenhydrAMIN E (BENADryl) 25 MG tablet Take 1 tablet (25 mg) by mouth every 6 (six) hours if needed for itching. 30 tablet 1 10/24/19 25 025 Active Blood Pressure kit 025 Discontinued(Re order (will not trigger notification to Pharmacy)) acetaminophen (Tylenol 8 Hour) 650 MG ER tablet Take 1 tablet (650 mg) by mouth every 8 (eight) hours if needed for mild pain. Do not crush, chew, or split. 40 tablet 1 09/17/19 25 025 diphenhydrAMIN E (BENADryl) 25 MG tablet Take 1 tablet (25 mg) by mouth every 6 (six) hours if needed for itching. 30 tablet 1 09/17/19 25 025 Discontinued(Re order (will not trigger notification to Pharmacy)) triamcinolone (Kenalog) 0.1 % ointment Apply topically if needed in the morning and at bedtime for rash. 30 g 1 09/17/19 25 025 Discontinued(Re order (will not trigger notification to Pharmacy)) Active Problems Problem Noted Date Diagnosed Date Costochondritis 08/23/2024 Assessment & Plan (08/23/2024 10:57 AM EST): Apply heat on affected area Acetaminophen 1000mg Q 8hrs Cyclobenzaprine 10mg Q 8hrs (patient was certified credit counselor about side effect somnolence, do not [...] Encounters Date Type Department Care Team Description 10/23/2024 11:20 AM EST Office Visit [facility] [address] [place] [phone] Ron Iqbal MD Rash (Primary Dx); Essential hypertension; Tobacco dependence 09/30/2024 Orders Only [facility] [address] [place] [address] Puja Giron DO Neck pain (Primary Dx) 09/20/[address] [address] Amanda Martin, RN Results 09/17/2024 9:00 AM EST Office Visit [address] [address] Puja Giron DO Right-sided chest pain (Primary Dx); Chronic right shoulder pain; Right arm pain; Dermatitis; Encounter for immunization; Subcutaneous nodule 09/17/2024 Orders Only [address] [address] Puja Giron, 09/17/2024 Telephone [facility] [address] [place] [address] Puja Giron, 09/17/2024 Travel 08/30/2024 Refill [facility] [address] [place] [address] Puja Giron, 08/23/2024 10:20 AM EST Office Visit [facility] [address] [place] [phone] Nkechi Rodriguez MD Costochondritis (Primary Dx); Essential hypertension 08/19/2024 9:20 AM EST Office Visit [facility] [address] [place] [phone] Ruth Antonio MD Essential hypertension (Primary Dx); Costochondritis; History of nummular eczema 08/08/2024 Telephone [facility] [address] [place] [address] Puja Giron DO Lab Orders 08/08/[address] [address] Puja Giron DO Nurse Triage from Last [...] Mass Index 19.66 10/23/2024 11:19 AM EST Plan of Treatment Health Maintenance Due Date Last Done Comments CT Colonography 1967 Colonoscopy 1967 Colorectal Cancer Screening 1967 Depression Screening 1967 FIT DNA/Cologuard 1967 FIT 1967 FOBT 1967 Sigmoidoscopy 1967 Alcohol/Substance Use Screening 1979 Hepatitis A Vaccines (1 of 2 - Risk 2-dose series) 1986 Hepatitis B Vaccines (1 of 3 - 19+ 3-dose series) 1986 Pneumococcal Vaccine: 50+ Years (1 of 2 - PCV) 1986 Zoster Vaccines (1 of 2) 2017 SDOH Screening 04/10/2025 04/10/2024 Tobacco Screening 10/23/2025 10/23/2024 Lipid Panel 04/10/2029 04/10/2024, 11/10/2021 DTaP/Tdap/Td Vaccines [...] Procedure Name Priority Date/Time Associated Diagnosis Comments XR CERVICAL SPINE 3V Routine 09/17/2024 10:25 AM EST XR SHOULDER 2+ VIEWS RIGHT Routine 09/17/2024 10:25 AM EST Chronic right shoulder pain Right arm pain ECG 12-LEAD Routine 08/23/2024 11:08 AM EST [...] Recently Relevant to Health Maintenance Results * XR CERVICAL SPINE 3V (09/17/2024 10:25 AM EST) Anatomical Region Laterality Modality Abdomen Radiographic Pamella ging 09/17/2024 10:2 5 AM EST Narrative 09/17/2024 11:24 AM EST ?[facility] ?[address] ?[place] [address] ?XRay Report ? Signed ? Patient: Bob,Nathalia ?MR#: [id number] ?? 0 ? : 1965 ?Acct:[id number] ? Age/Sex: 59 / M ?ADM Date: 09/17/24 ? Loc: HO.HHCX ? Attending Dr: Puja Giron DO ? Ordering Physician: Puja Giron DO ?? Date of Service: 09/17/24 ?? Procedure(s): XR cervical spine 3V ?? Accession Number(s): [id number] ? cc: Puja Giron DO ? EXAMINATION: ?? XR CERVICAL SPINE ? CLINICAL INFORMATION: ?? PAIN ? COMPARISON: ?? None available. ? TECHNIQUE: ?? 3 views of the cervical spine were obtained. ? FINDINGS: ?? Craniocervical junction is intact. ?? Multilevel marginal osteophyte formation, endplate sclerosis, decreased ?? intervertebral disc C5-6, C6-7 and to a lesser extent C3-4. ?? Grade 1 retrolisthesis C5-6 and C6-7. ?? Grade 1 anterolisthesis C4-5. ?? No acute cortical disruption. ?? No lytic or blastic lesions. ?? Upper respiratory airways patent. ? XR/XR cervical spine 3V ?? IMPRESSION: ?? Multilevel cervical spondylosis resulting in grade 1 retrolisthesis ?? C5-6 and C6-7 levels and grade 1 anterolisthesis C4-5. ? Electronically signed by: ??Lenny Reilly MD ??09/17/2024 11:22 AM ?? EST RP ? Dictated By: ?Lenny Pearson MD ? Signed By: ?<Electronically signed by Lenny Gibbons MD in OV> ? 09/17/24 1122 ? DD/ 1025 ? TD/TT: 09/17/24 1047 ? Healthcare Corporate Account Director: ? Procedure Note Darrellshyann, Image - 09/17/2024 [place] [address] XRay Report Signed Patient: Nathalia RojasMR#: [id number] 0 : 1965Acct:[id number] Age/Sex: 59 / MADM Date: 09/17/24 Loc: HO.HHCX Attending Dr: Puja Giron DO Ordering Physician: Puja Giron DO Date of Service: 09/17/24 Procedure(s): XR cervical spine 3V Accession Number(s): [id number] cc: Puja Giron DO EXAMINATION: XR CERVICAL SPINE CLINICAL INFORMATION: PAIN COMPARISON: None available. TECHNIQUE: 3 views of the cervical spine were obtained. FINDINGS: Craniocervical junction is intact. Multilevel marginal osteophyte formation, endplate sclerosis, decreased intervertebral disc C5-6, C6-7 and to a lesser extent C3-4. Grade 1 retrolisthesis C5-6 and C6-7. Grade 1 anterolisthesis C4-5. No acute cortical disruption. No lytic or blastic lesions. Upper respiratory airways patent. XR/XR cervical spine 3V IMPRESSION: Multilevel cervical spondylosis resulting in grade 1 retrolisthesis C5-6 and C6-7 levels and grade 1 anterolisthesis C4-5. Electronically signed by: Lenny Reilly MD 09/17/2024 11:22 AM EST RP Dictated By: Lenny Pearson MD Signed By: <Electronically signed by Lenny Gibbons MDin OV> 09/17/24 1122 DD/ 1025 TD/TT: 09/17/24 1047 Healthcare Corporate Account Director: us Puja Giron DO IMG XR PROCEDURES Final Resu lt * XR Shoulder 2+ Views Right (09/17/2024 10:25 AM EST) Anatomical Region Laterality Modality Upper Extremities, Shoulder Right Radi ographic Imaging 09/17/2024 10:2 5 AM EST Narrative 09/17/2024 11:26 AM EST ?[facility] ?[address] ?[place] [address] ?XRay Report ? Signed ? Patient: Gajraj,Nathalia ?MR#: [id number] ?? 0 ? : 1965 ?Acct:[id number] ? Age/Sex: 59 / M ?ADM Date: 09/17/24 ? Loc: HO.HHCX ? Attending Dr: Puja Giron DO ? Ordering Physician: Puja Giron DO ?? Date of Service: 09/17/24 ?? Procedure(s): XR shoulder RT min 2V ?? Accession Number(s): [id number] ? cc: Puja Giron DO ? EXAMINATION: ?? XR SHOULDER, RIGHT ? CLINICAL INFORMATION: ?? PAIN ? COMPARISON: ?? None available. ? TECHNIQUE: ?? AP external rotation, Grashey, scapular Y, and axillary views of the ?? right shoulder. ? FINDINGS: ?? No acute cortical disruption or malalignment. No lytic or blastic ?? lesions. There is preservation of the joint spaces. No metallic or ?? radiopaque foreign body. ? XR/XR shoulder RT min 2V ?? IMPRESSION: ?? No acute fracture or dislocation. No gross osteoarthrosis. ? Electronically signed by: ??Lenny Reilly MD ??09/17/2024 11:22 AM ?? EST RP ? Dictated By: ?Lenny Pearson MD ? Signed By: ?<Electronically signed by Lenny Gibbons MD in OV> ? 09/17/24 1122 ? DD/ 1025 ? TD/TT: 09/17/24 1047 ? Healthcare Corporate Account Director: ? Procedure Note Donlucíater, Image - 09/17/[address] [address] XRay Report Signed Patient: Nathalia RojasMR#: [id number] 0 : 1965Acct:[id number] Age/Sex: 59 / MADM Date: 09/17/24 Loc: HO.HHCX Attending Dr: Puja Giron DO Ordering Physician: Puja Giron DO Date of Service: 09/17/24 Procedure(s): XR shoulder RT min 2V Accession Number(s): [id number] cc: Puja Giron DO EXAMINATION: XR SHOULDER, RIGHT CLINICAL INFORMATION: PAIN COMPARISON: None available. TECHNIQUE: AP external rotation, Grashey, scapular Y, and axillary views of the right shoulder. FINDINGS: No acute cortical disruption or malalignment. No lytic or blastic lesions. There is preservation of the joint spaces. No metallic or radiopaque foreign body. XR/XR shoulder RT min 2V IMPRESSION: No acute fracture or dislocation. No gross osteoarthrosis. Electronically signed by: Lenny Reilly MD 09/17/2024 11:22 AM EST RP Dictated By: Lenny Pearson MD Signed By: <Electronically signed by Lenny Gibbons MDin OV> 09/17/24 1122 DD/ 1025 TD/TT: 09/17/24 1047 Healthcare Corporate Account Director: Puja Giron DO IMG XR PROCEDURES Final Resu lt * ECG 12 lead (08/23/2024 11:08 AM EST) Only the most recent of2 resultswithin the time period is included. Narrative Nkechi Rodriguez MD - 08/23/2024 11:08 AM EST NSR us Nkechi Thronton MD ECG ORDERABLES Final Result * Hepatitis C Antibody with Reflex to HCV, RNA, Quantitative, Real-Time PCR (04/10/2024 12:00 PM EDT) Hepatitis C Antibody Nonreactive Nonreactive [facility] Comment:Antibodies to HCV no t detected; does not exclude early acuteHCV infection. Blood Venous blood specimen / Unknown 04/10/2024 12:00 PM EDT 04/10/2024 1:09 PM EDT us Puja Giron DO LAB BLOOD ORDERABLES Final R esult [facility] [address] [place] [phone] * HIV-1/2 Antigen and Antibodies, Fourth Generation, with Reflexes (04/10/2024 12:00 PM EDT) HIV AB/AG Nonreactive Nonreactive [facility] Comment:HIV-1 p24 Ag and/or HIV-1/HIV-2 Ab not detected.A test result that is nonreactive does not exclude thepossibility of exposure to or infection with HIV-1 and/orHIV-2. Nonreactive results in this assay for individualswith prior exposure to HIV-1 and/or HIV-2 may be due toantigen and antibody levels that are below the limit ofdetection of this assay.The Signicat HIV Ag/Ab Combo assay result andsupplemental assay results should be interpreted inconjunction with the patient's clinical presentation,history and other laboratory results. If the results areinconsistent with clinical evidence, additional testing issuggested to confirm the result. Blood Venous blood specimen / Unknown 04/10/2024 12:00 PM EDT 04/10/2024 1:09 PM EDT Puja Bree DO LAB BLOOD ORDERABLES Final R esult Performing Organization Address City/[facility]/ZIP Co de Phone Number [facility] [address] [place] [address] [phone] * (ABNORMAL) Lipid Panel, Standard (04/10/2024 12:00 PM EDT) Triglycerides 134 <150 mg/dL [facility] Comment:Desirable Triglyceri de: less than 150 mg/dLBorderline High Triglyceride 150-199 mg/dLHigh Triglyceride: 200-499 mg/dLVery High Triglyceride: greater than or equal to 5OO mg/dL Cholesterol 234(H) <200 mg/dL [facility] Comment:Desirable Cholestero l: less than 200 mg/dLBorderline High Cholesterol: 200-239 mg/dLHigh Cholesterol: greater than 239 mg/dL LDL Cholesterol Calculated 154(H) <100 mg/dL [facility] Comment:Desirable LDL: less than 100 mg/dLNear Optimal/Above Optimal LDL: 110- 129 mg/dLBorderline High LDL: 130-159 mg/dLHigh LDL: 160-189 mg/dLVery High LDL: greater than or equal to 190 mg/dL HDL Cholesterol 54 >40 mg/dL [facility] Comment:Desirable HDL: great er than 40 mg/dL Note: This HDL assay may give artificially low results in patients with liver disease. Blood Venous blood specimen / Unknown 04/10/2024 12:00 PM EDT 04/10/2024 1:09 PM EDT Puja Marcumjaydon DO LAB BLOOD ORDERABLES Final R esult Performing Organization Address City/[facility]/ZIP Co de Phone Number [facility] [address] [place] [address] [phone] from Last 3 Months or Most Recently Relevant to Health Maintenance [facility] Care Teams Jalousies Installer Relationship Specialty Start Date End Date Puja Giron DO [address] [place] [phone] PCP - General Family Medicine 03/08/24
[2024-10-25 12:34] LABS: RPR Rapid Plasma Reagin NON-REACTIVE (NON-REACTIVE)
== END 2024-10-23 11:48 | disposition home or self-care (01) ==
LOC: HO.HHCL 11:47
PROVIDERS: Visit Provider Emergency Medicine
DX: R21 Rash and other nonspecific skin eruption (principal)
CPT/HCPCS: 36415; 86592

== ENCOUNTER 2025-01-27 08:30 | Outpatient (REF) | payer MEDICAID, OTHER, SELFPAY ==
--- OUTSIDE RECORDS SUMMARY | 2025-01-27 08:38 | XMS_ITS | Encounter Summary ---
Author Organization [employer] Address [address] [place] [address] Care Team Providers Care Weight And Balance Control Agent Name Role Phone Puja Giron DO Primary Care Provider + [phone] Reason for Visit * Reason Comments Med Refill Encounter Details Date Type Department Care Team ([facility] Contact Info) Description 12/06/2024 Refill [facility] [address] [place], [place] [phone] Ron Iqbal MD [address] [place], [place] [phone] Social History Tobacco Use Types Packs/Day Years [...] on filedocumented in this encounter Care Teams Weight And Balance Control Agent Relationship Specialty Start Date End Date Puja Giron DO [address] [place] [phone] PCP - General Family Medicine 03/08/24 documented as of this encounter
[2025-01-30 09:29] LABS: TS Negative Control Passed; TS Panel A 0; TS Panel B 0; TS Positive Control Passed; TSpotTB Negative (Negative)
== END 2025-01-27 08:31 | disposition home or self-care (01) ==
LOC: HO.HHCL 08:30
PROVIDERS: Visit Provider Internal Medicine
DX: Z11.9 Encounter for screening for infectious and parasitic diseases, unspecified (principal)
CPT/HCPCS: 36415; 86481